=== PATIENT | male | born 1990 | race African-American/Black ===

== ENCOUNTER 2016-10-07 12:29 | Emergency (ER) | payer SELFPAY ==
[~2016-10-07 12:29] MED LIST: AMOXIL500 MG PO; COMPAZINE10 M PO; NO MEDS
[2016-10-07] MEDS ORDERED: NORCO 5-325 TA1 EACH PO (14:14)
[2016-12-31] MEDS ORDERED: AUGMENTIN 875-1 EAC2 PO (21:47)
[2016-12-31] MEDS ORDERED: NORCO 5-325 TA1 EACH PO (21:47)
== END 2016-10-07 14:41 ==
LOC: EDMED 12:29
DX: K08.89 Other specified disorders of teeth and supporting structures (principal); F17.200 Nicotine dependence, unspecified, uncomplicated; Z91.010 Allergy to peanuts